=== PATIENT | male | born 1945 | race Caucasian/White ===

== ENCOUNTER → 2018-06-23 12:15 | Outpatient (CLI) | payer MEDICARE, OTHER, SELFPAY ==
--- NOTE | 2018-06-23 | DI.US.S_ITS ---
PROCEDURE: US RENAL COMPLETE INDICATIONS: CHRONIC KIDNEY DISEASE TECHNIQUE: Real-time scanning was performed of the kidneys and bladder, with image documentation. COMPARISON: [facility], CT, CHEST/ABD/PEL WITH CONTRAST, 09/16/2014, 19:58. FINDINGS: Kidneys: Kidneys are normal in size. Right kidney measures 9.2 cm long; left kidney measures 11.5 cm long. Right renal cortical thickness is 0.8 cm; left renal cortical thickness is 1.2 cm. There is increased echogenicity of the right renal cortex. The echogenicity of the left renal cortex appears to be within normal limits. No hydronephrosis or shadowing nephrolithiasis. No suspicious solid mass lesions. A simple appearing inferior left renal cyst is identified measuring up to 3.5 cm in diameter. An additional subtle 1.0 cm inferior left renal cyst also is present. Bladder: Pre-void bladder volume is 133 mL. Post-void residual is 24 mL. Pre-void images demonstrate no intraluminal masses or stones. No ureteral jets were not visualized. Miscellaneous: No free pelvic fluid. IMPRESSION: 1. Atrophic right kidney with findings suggesting chronic medical renal disease. No hydronephrosis. 2. The left kidney probably is within normal limits for the patient's age. Dictated by: José Manuel Bone M.D. on 06/23/2018 at 12:53 Approved by: José Manuel Bone M.D. on 06/23/2018 at 12:59
== END ==
PROVIDERS: Family Provider Family Medicine; PCP Family Medicine; Visit Provider Internal Medicine
DX: N18.9 Chronic kidney disease, unspecified (principal); N28.1 Cyst of kidney, acquired
CPT/HCPCS: 76770

== ENCOUNTER → 2020-07-23 13:12 | Outpatient (CLI) | payer MEDICARE, BC, SELFPAY ==
--- NOTE | 2020-07-23 | DI.RAD.S_ITS ---
PROCEDURE: XR CHEST 2V INDICATIONS: DYSNPEA TECHNIQUE: 2 views of the chest were acquired. COMPARISON: [facility], CR, XR CHEST 1VW (PORTABLE), 11/29/2016, 13:12. [facility], CR, CHEST 1 VIEW, 11/28/2016, 21:53. FINDINGS: Surgical changes and devices: Median sternotomy. Lungs and pleura: Small left pleural effusion is present. No pneumothorax. Diffuse, widespread bilateral interstitial opacities. No focal lung consolidation. Mediastinum: Mediastinal contours are normal. Heart size is enlarged. Bones and chest wall: No suspicious bony abnormalities. Soft tissues appear unremarkable. IMPRESSION: 1. Cardiomegaly and diffuse interstitial opacity suspicious for acute CHF and a small left pleural effusion is now evident. Dictated by: Cory Gardner [facility] Interpreted: Serge Jaimes MD on 07/23/2020 at 13:31 Approved by: Serge Jaimes M.D. on 07/23/2020 at 14:42
== END ==
PROVIDERS: PCP Family Medicine; Referring Provider Family Medicine; Visit Provider Family Medicine
DX: R06.00 Dyspnea, unspecified (principal); I51.7 Cardiomegaly; J90 Pleural effusion, not elsewhere classified
CPT/HCPCS: 71046

== ENCOUNTER → 2020-08-12 09:18 | Outpatient (CLI) | payer MEDICARE, BC, SELFPAY ==
--- NOTE | 2020-08-12 09:22 | DI.ECHO.S_ITS ---
[facility] +---------+ : : [address] [place] : : : : [id number] : : : : Phone: [phone] Echocardiogram Report + + :Name: MIKE CONTRERAS Study Date: 08/12/2020 Height: 70 in : :[facility] ReadingLocation: Weight: 230 lb : : Gender: Male BSA: 2.2 m2 : :: 1945 Age: 74 yrs BP: 166/61 mmHg: :Reason For Study: ACUTE SYSTOLIC CONGESTIVE HEART FAILURE : :Ordering Physician: SACHI, : :VINNIE Performed By: Kelly Cole : :Referring: VINNIE KARIMI : + + Interpretation Summary Severely dilated left ventricle with ejection fraction 25%. There is severe global hypokinesis of the left ventricle. Diastolic parameters suggest a restrictive filling pattern consistent with probable significantly elevated filling pressures. Mild to moderately dilated right ventricle with moderately reduced right ventricular systolic function. Severe biatrial enlargement. Mild aortic regurgitation. Mild mitral annular calcification. Moderate to severe mitral regurgitation, eccentrically directed jet. Moderate tricuspid regurgitation. The right ventricular systolic pressure is estimated to be at least 47 mmHg based on an estimated right atrial pressure of 15 mm Hg. Comparison is made with the echocardiogram of 04/26/2017, LV function and mitral regurgitation have worsen. Procedure: A two-dimensional transthoracic echocardiogram with color flow and Doppler was performed. The study quality was technically adequate. Comparison is made with the echocardiogram of 04/26/2017. The heart rate ranged between 48-68 bpm during the study. Left Ventricle: The estimated left ventricular end diastolic volume is 200 ml. The left ventricle is severely dilated. Left ventricular ejection fraction is estimated to be 25%. There is severe global hypokinesis of the left ventricle. Diastolic parameters suggest a restrictive filling pattern consistent with probable significantly elevated filling pressures. Right Ventricle: The right ventricle is mild to moderately dilated. Right ventricular systolic function is moderately reduced. Atria: There is severe biatrial enlargement. There is no Doppler evidence for an interatrial shunt. Mitral Valve: There is mild mitral annular calcification. There is moderate to severe mitral regurgitation. The mitral regurgitant jet is eccentrically directed. Aortic Valve: The aortic valve is trileaflet. The aortic valve opens well. There is no aortic valve stenosis. There is mild aortic regurgitation. Tricuspid Valve: The tricuspid valve is not well visualized, but is grossly normal. There is moderate tricuspid regurgitation. The right ventricular systolic pressure is estimated to be at least 47 mmHg based on an estimated right atrial pressure of 15 mm Hg. Pulmonic Valve: The pulmonic valve leaflets are thin and pliable; valve motion is normal. There is mild pulmonic regurgitation. Great Vessels: The aortic root is normal size. The dimensions of the ascending aorta are normal. The IVC is dilated (diameter is greater than 2.1 cm) and it collapses less than 50% with a sniff. This suggests a high right atrial pressure of 15 mm Hg. Pericardium/ Pleura There is no pericardial effusion. There is no pleural effusion. MMode/2D Measurements & Calculations LVIDd: 6.9 cm LVOT diam: 2.4 cm LVIDs: 5.8 cm Ao root diam: 3.7 cm FS: 16.3 % asc Aorta Diam: 3.2 cm EPSS: 2.0 cm Ao Arch Diam (Prox Trans): 2.9 cm IVSd: 1.2 cm LVPWd: 1.1 cm LV love. diameter/BSA (cm/m^2): 3.1 LV sys. diameter/BSA (cm/m^2): 2.6 LA A2 area: 33.3 cm2 RA long axis: 6.7 cm LA A4 area: 39.8 cm2 RA area: 31.8 cm2 LA length (vol): 7.3 cm RA vol: 128.4 ml LA vol: 155.0 ml RA : 58.0 ml/m2 LA vol index: 70.0 ml/m2 IVC diam: 3.0 cm RVD1 (basal): 4.6 cm TAPSE: 1.3 cm Doppler Measurements & Calculations Ao V2 max: 123.2 cm/sec LVOT Max Luis: 79.6 cm/sec Ao V2 mean: 78.6 cm/sec LV V1 max P.5 mmHg Ao max P.1 mmHg LV V1 VTI: 16.9 cm Ao mean P.9 mmHg ABEL(I,D): 3.0 cm2 Ao V2 VTI: 26.3 cm ABEL(V,D): 3.0 cm2 sev ratio: 0.64 ABEL indexed to BSA (cm^2/m^2): 1.3 MV E max luis: 103.7 cm/sec TR max luis: 283.1 cm/sec MV A max luis: 46.2 cm/sec TR max P.1 mmHg MV E/A: 2.2 PA V2 max: 63.3 cm/sec Med Peak E' Luis: 2.8 cm/sec PA V2 mean: 37.3 cm/sec E/E' med: 36.8 PA mean P.69 mmHg Lat Peak E' Luis: 4.7 cm/sec PA pr(Accel): 25.9 mmHg E/E' lat: 22.3 E/e' average: 29.5 MV dec time: 0.17 sec MR ERO: 0.27 cm2 MR PISA: 4.9 cm2 SV(LVOT): 78.4 ml MR flow rate: 172.6 cm3/sec MR PISA radius: 0.88 cm Electronically signed by: Sarahy Shultz on Reading Physician:08/12/2020 05:21 PM
== END ==
PROVIDERS: PCP Family Medicine; Referring Provider Family Medicine; Visit Provider Family Medicine
DX: I08.3 Combined rheumatic disorders of mitral, aortic and tricuspid valves (principal); I50.21 Acute systolic (congestive) heart failure
CPT/HCPCS: 93306

== ENCOUNTER → 2020-09-19 14:12 | Outpatient (CLI) | payer MEDICARE, BC, SELFPAY | PROVIDERS: PCP Family Medicine; Referring Provider Internal Medicine; Visit Provider Internal Medicine | DX: N18.4 Chronic kidney disease, stage 4 (severe) (principal); Z53.8 Procedure and treatment not carried out for other reasons ==

== ENCOUNTER → 2020-09-25 13:36 | Outpatient (CLI) | payer MEDICARE, BC, SELFPAY ==
--- NOTE | 2020-09-25 13:39 | DI.US.S_ITS ---
PROCEDURE: US RENAL COMPLETE INDICATIONS: STAGE 4 KIDNEY DISEASE TECHNIQUE: Real-time scanning was performed of the kidneys and bladder, with image documentation. COMPARISON: [facility], , US RENAL COMPLETE, 06/23/2018, 12:28. FINDINGS: Kidneys: Kidneys are normal in size. Right kidney measures 9.9 cm long; left kidney measures 11.8 cm long. Right renal cortical thickness is 1.3 cm; left renal cortical thickness is 1.3 cm. Renal cortical echotexture is normal. No hydronephrosis. Small bilateral nonobstructing calcifications measuring up to 5 mm on the right and 9 mm on the left. Left renal cyst measuring up to 5.4 cm. Bladder: Pre-void bladder volume is 169 mL. Post-void residual is 0 mL. Pre-void images demonstrate no intraluminal masses or stones. On pre-void images, neither ureteral jets are noted with color Doppler interrogation. (Of note, ureteral jets may not be detectable in up to 25% of cases due to insufficient differences in specific gravity between ureteral and bladder urine). Miscellaneous: No free pelvic fluid. IMPRESSION: 1. Bilateral nonobstructing calculi. 2. 5.4 cm left renal cyst. Dictated by: Cory Gardner [facility] Interpreted: Abdias Thompson MD on 09/25/2020 at 16:36 Approved by: Abdias Thompson M.D. on 09/25/2020 at 17:07
== END ==
PROVIDERS: PCP Family Medicine; Referring Provider Internal Medicine; Visit Provider Internal Medicine
DX: N18.4 Chronic kidney disease, stage 4 (severe) (principal); N20.0 Calculus of kidney; N28.1 Cyst of kidney, acquired
CPT/HCPCS: 76770

== ENCOUNTER → 2020-10-28 13:00 | Outpatient (CLI) | payer MEDICARE, BC, SELFPAY ==
[2020-10-28 16:59] LABS: COVID19 -Nasal RAPID Negative (Negative)
== END ==
PROVIDERS: PCP Family Medicine; Visit Provider Physician Assistant
DX: Z20.822 Contact with and (suspected) exposure to COVID-19 (principal)
CPT/HCPCS: 87635; C9803

== ENCOUNTER → 2020-10-30 10:14 | Outpatient (CLI) | payer MEDICARE, BC, SELFPAY ==
--- NOTE | 2020-10-30 18:28 | DI.NM.S_ITS ---
DATE OF SERVICE: 10/30/2020 PROCEDURE PERFORMED: Vasodilator stress and rest myocardial perfusion imaging with gating to assess ejection fraction and regional wall motion. ORDERING PROVIDER: Dr. Marco Mcneal. INDICATIONS: The patient is a 75-year-old male status post CABG, who presents with exertional dyspnea and evidence of CHF. CARDIAC STRESS: Per protocol, 0.4 mg of regadenoson was infused with a blunted hemodynamic response but he developed moderate dyspnea and some posterior neck discomfort ,suggesting adequate vasodilation. He denied any chest discomfort. His resting ECG shows atrial fibrillation at 50-60 BPM with low voltage QRS and some nonspecific ST-segment abnormalities in the inferolateral leads which remained unchanged with stress. He had occasional PVCs, but no other concerning arrhythmias. FINDINGS: 1. Raw data: There is fair myocardial tracer uptake with obvious severe left ventricular enlargement. The lung/heart ratio is significantly elevated at 0.64, suggestive of pulmonary congestion. TID ratio is normal 1.05. 2. Quantitated gated SPECT: Post-stress ejection fraction is estimated is estimated at 50%, although visually appears to be less than this. There is moderate global hypokinesis that appears to be worse in the inferior wall. The resting ejection fraction is estimated at 45%, although image quality is quite poor. The contraction pattern appears similar. Resting end-diastolic volume is markedly elevated at 362 mL. 3. Myocardial perfusion imaging: Post-stress perfusion images show a markedly dilated left ventricle with a mild perfusion defect in the inferior wall, extending to the distal inferoapex. This could reflect a true perfusion defect or diaphragmatic attenuation but the patient was unable to lay prone to assess for the latter. The resting images show an identical perfusion pattern with no clear improvement in the inferior wall perfusion defect. There are no clear areas of improvement. IMPRESSION: 1. Abnormal myocardial perfusion study. 2. Mild to moderate fixed inferior perfusion defect that likely reflects previous nontransmural infarction, given a subtle wall motion abnormality in this distribution, but could also reflect a diaphragmatic attenuation. There is no compelling evidence for any significant myocardial ischemia. 3. Markedly dilated left ventricle with moderate left ventricular systolic dysfunction, predominantly in a global fashion but appears to be worse in the inferior wall. Resting end-diastolic volume is severely elevated at 362 mL. 4. No angina or ECG evidence of ischemia with pharmacologic vasodilator stress. Underlying rhythm was atrial fibrillation with a slow ventricular response and low voltage QRS. There were occasional premature ventricular contractions, at times, in a bigeminal pattern, but no other concerning arrhythmias. Scott Moss - BETHANY/courtney/haily doc#: [id number]/job#: [id number] dd: 10/30/2020 16:59:00 dt: 10/30/2020 18:04:00 DICTATING MD/COPIES TO: Kd Tracy MD; Marco Mcneal MD COPIES MNE: GUDELIA;
== END ==
PROVIDERS: PCP Family Medicine; Referring Provider Internal Medicine Cardiovascular Disease; Visit Provider Internal Medicine Cardiovascular Disease
DX: R94.39 Abnormal result of other cardiovascular function study (principal); I25.810 Atherosclerosis of coronary artery bypass graft(s) without angina pectoris; R06.09 Other forms of dyspnea
CPT/HCPCS: 78452; 93016; 93017; 93018; A9502; J2785

== ENCOUNTER 2020-11-16 09:55 | Emergency (ER) | payer MEDICARE, BC, SELFPAY ==
[2020-11-16 10:02] VITALS: BP 170/70; PULSE 60; RESP 16; TEMP 37; O2SAT 97; BMI 32.4
--- NOTE | 2020-11-16 10:05 | ED_ITS ---
HPI - Altered Mental Status General Chief Complaint: Diabetic Problem Stated Complaint: low BS Time Seen by Provider: 11/16/20 09:58 Source: patient and EMS Mode of arrival: EMS Limitations: no limitations History of Present Illness HPI narrative: This is a 75-year-old male who has had low blood sugar yesterday as well as this morning. Today his glucose was 39, EMS gave him D10 which improved to 91. Patient states that he was confused today he lives with his daughter who called for EMS. He denies any other symptoms currently and states he feels much better after he received glucose from EMS. He denies any headache, no vision changes. No chest pain or shortness of breath, no nausea or vomiting. No diarrhea constipation he notes that he does not urinate very frequently but this is not new change for him. He denies any new swelling. Patient did start on Wellbutrin who recently. He also had a blood pressure medication started. He had his metformin stopped and changed to glipizide but from his description this was not in the last several days but possibly the next several weeks. Patient states that he was having some issues with his teeth and had only been eating cream of mushroom soup and nothing in addition. He had a dental appointment yesterday with repair and is feeling much better and no longer having dental pain. He states he had decreased his oral intake significantly. Patient states yesterday his glucose was 44, this also improved and he was not transported at that time. Patient does not take any insulin or other anti diabetic medications. He does have a history of coronary artery bypass and is on aspirin daily with no other anticoagulant. Related Data Home Medications Medication Instructions Recorded Confirmed aspirin 81 mg PO DAILY 02/01/20 07/08/20 atorvastatin 40 mg PO DAILY 02/01/20 07/08/20 cholecalciferol (vitamin D3) 125 mcg PO QMWF 02/01/20 07/08/20 [Vitamin D3] ferrous sulfate 325 mg PO DAILY 02/01/20 07/08/20 finasteride 5 mg PO DAILY 02/01/20 07/08/20 furosemide 40 mg PO DAILY 02/01/20 07/08/20 glimepiride 2 mg PO BID 02/01/20 07/08/20 hydralazine 50 mg PO TID 02/01/20 07/08/20 isosorbide mononitrate 60 mg PO QAM 02/01/20 07/08/20 losartan 25 mg PO DAILY 02/01/20 07/08/20 multivitamin 1 cap PO DAILY 02/01/20 07/08/20 tamsulosin 0.4 mg PO DAILY 02/01/20 07/08/20 trazodone 50 mg PO BEDTIME 02/01/20 07/08/20 Previous Rx's Medication Instructions Recorded hydralazine 100 mg PO TID #30 tab 11/16/20 Allergies Allergy/AdvReac Type Severity Reaction Status Date / Time Iodinated Contrast Media Allergy Unknown Unverified 10/27/17 13:00 [IODINATED CONTRAST MEDIA - ORAL AND] Review of Systems Review of Systems ROS Unobtainable: All systems reviewed & are unremarkable except as noted in HPI and below Patient History Medical History Atrial fibrillation AV block, 1st degree CKD (chronic kidney disease) stage 4, GFR 15-29 ml/min Coronary artery disease involving coronary bypass graft (~2017) Diabetes Hyperlipidemia Hypertension Iron deficiency anemia PAD (peripheral artery disease) Sick sinus syndrome Surgical History History of appendectomy S/P CABG x 3 Family History (Updated 02/01/20 @ 14:41 by Ying Green MD) Mother Ovarian cancer Social History Smoking Status: Current every day smoker (21 cigs a day) alcohol intake: never substance use type: does not use Smoking Status: Current every day smoker (21 cigs a day) Exam Narrative Exam Narrative: GEN: well nourished, well appearing male, alert and oriented x 3, patient appears to be in mild distress. HEENT: Atraumatic, pupils are equal round reactive to light, extraocular movements are intact, nares are clear, TMs are clear with no fluid, there is no conjunctival pallor. Throat is clear without any exudates, erythema, tonsillar enlargement or uvular deviation, no facial droop. Clear speech. HEART: Regular rate and rhythm without murmur, clicks, rubs. LUNGS:Lungs clear to auscultation, no wheezes, rales, crackles, chest moves symmetrically ABD:bowel sounds normal, soft, non-tender, no guarding, rebound, rigidity, no masses noted, no hepatosplenomegaly :No CVA tenderness MSCL: Non-tender, no muscle atrophy, muscles strength 5/5 upper and lower extremities, full range of motion, normal gait NEURO:CN 2-12 intact, sensation normal SKIN: No rash, erythema or other changes noted. Initial Vital Signs Initial Vital Signs: Vital Signs Temperature 98.6 F 11/16/20 10:02 Pulse Rate 60 11/16/20 10:02 Respiratory Rate 16 11/16/20 10:02 Blood Pressure 170/70 H 11/16/20 10:02 Pulse Oximetry 97 11/16/20 10:02 Scores GCS Watts coma scale eye opening: Spontaneous [place] coma scale verbal response: Orientated [place] coma scale motor response: Obey commands Watts coma scale total score: 15 Course Orders Ordered: Discontinued Medications Sodium Chloride (Normal Saline 0.9%) 1,000 mls @ 150 mls/hr IV CONT EUGENE Last Admin: 11/16/20 12:01 Dose: Not Given Documented by: BASHIR Reevaluation(s) Time: 12:11 Consultations Consultation #1: Dr. Mobley from nephrology at [facility]. Recommends that we increase patient's Lasix to 120 mg q.a.m. and 80 mg q.h.s.. She notes that he was 96.5 kg on his last office visit as we have him as 102 kg today. She also recommends decreasing his glipizide to 2 mg daily and that 2 mg b.i.d. would be too high a dose for the patient. She also recommend holding his losartan if he is hypertensive she recommends increasing his hydralazine from 50 mg t.i.d. 200 mg t.i.d.. Patient is also to call the office on Wednesday morning for close follow- up as they have been discussing that he may be requiring dialysis in the future which patient was aware of. Time: 12:11 Vital Signs Vital signs: Vital Signs - 8 hr 11/16/20 12:30 11/16/20 12:31 Pulse Rate 64 Blood Pressure 182/73 H Pulse Oximetry 96 MDM - Altered Mental Status Lab Data Attestation: I reviewed the patient's lab results. Result diagrams: 11/16/20 10:05 11/16/20 10:05 Labs: Lab Results 11/16/20 11/16/20 11/16/20 Range/Units 10:05 10:05 10:05 WBC 4.7 (4.5-11.0) X10^3/uL RBC 2.66 L (4.5-5.9) X10^6/uL Hgb 9.1 L (13.5-17.5) g/dL Hct 25.9 L (41-53) % MCV 97.5 (80-100) fL MCH 34.3 H (26-34) PG MCHC 35.2 (30-36) % RDW 14.7 (11.6-14.8) % Plt Count 123 L (150-400) X10^3/uL Neut % (Auto) 78.9 H (50-75) % Lymph % (Auto) 7.8 L (25-40) % [place] % (Auto) 10.6 (3-14) % Eos % (Auto) 2.2 (2-4) % Baso % (Auto) 0.5 (0-2) % Neut # (Auto) 3700 (4228-8598) /uL Lymph # (Auto) 400 L (1129-0601) /uL [place] # (Auto) 500 (0-900) /uL Eos # (Auto) 100 (0-450) /uL Baso # (Auto) 0 (0-100) /uL PT 15.5 H (10.1-12.7) SECONDS INR 1.4 H (0.9-1.3) APTT 39 H (26.4-36.2) SECONDS Sodium 132 L (137-145) mmol/L Potassium 4.0 (3.4-5.1) mmol/L Chloride 102 (98-107) mmol/L Carbon Dioxide 19 L (22-32) mmol/L BUN 74 H (9-20) mg/dL Creatinine 3.48 H (0.66-1.25) mg/dL Estimated GFR 17.2 L (>60) mL/min BUN/Creatinine Ratio 21.3 (6-22) Glucose 117 H (80-110) mg/dL Lactate (0.7-2.1) mmol/L Calcium 9.5 (8.4-10.2) mg/dL Total Bilirubin 0.8 (0.2-1.3) mg/dL AST 19 (17-59) IU/L ALT 15 (<50) IU/L Alkaline Phosphatase 135 H (38-126) U/L Total Creatine Kinase 93 (55-170) U/L CK-MB (CK-2) TNP CK-MB (CK-2) Rel Index TNP Troponin I 0.032 (0.01-0.034) ng/mL Total Protein 6.6 (6.3-8.2) g/dL Albumin 3.8 (3.5-5.0) g/dL Globulin 2.8 (1.7-4.1) g/dL Albumin/Globulin Ratio 1.4 (1.0-2.8) TSH (0.47-4.68) uIU/mL Ethyl Alcohol < 10 ( - 10) mg/dL 11/16/20 11/16/20 Range/Units 10:05 10:05 WBC (4.5-11.0) X10^3/uL RBC (4.5-5.9) X10^6/uL Hgb (13.5-17.5) g/dL Hct (41-53) % MCV (80-100) fL MCH (26-34) PG MCHC (30-36) % RDW (11.6-14.8) % Plt Count (150-400) X10^3/uL Neut % (Auto) (50-75) % Lymph % (Auto) (25-40) % [place] % (Auto) (3-14) % Eos % (Auto) (2-4) % Baso % (Auto) (0-2) % Neut # (Auto) (4221-6221) /uL Lymph # (Auto) (8026-1617) /uL [place] # (Auto) (0-900) /uL Eos # (Auto) (0-450) /uL Baso # (Auto) (0-100) /uL PT (10.1-12.7) SECONDS INR (0.9-1.3) APTT (26.4-36.2) SECONDS Sodium (137-145) mmol/L Potassium (3.4-5.1) mmol/L Chloride (98-107) mmol/L Carbon Dioxide (22-32) mmol/L BUN (9-20) mg/dL Creatinine (0.66-1.25) mg/dL Estimated GFR (>60) mL/min BUN/Creatinine Ratio (6-22) Glucose (80-110) mg/dL Lactate 1.3 (0.7-2.1) mmol/L Calcium (8.4-10.2) mg/dL Total Bilirubin (0.2-1.3) mg/dL AST (17-59) IU/L ALT (<50) IU/L Alkaline Phosphatase (38-126) U/L Total Creatine Kinase (55-170) U/L CK-MB (CK-2) CK-MB (CK-2) Rel Index Troponin I (0.01-0.034) ng/mL Total Protein (6.3-8.2) g/dL Albumin (3.5-5.0) g/dL Globulin (1.7-4.1) g/dL Albumin/Globulin Ratio (1.0-2.8) TSH 0.350 L (0.47-4.68) uIU/mL Ethyl Alcohol ( - 10) mg/dL Point of Care Testing Glucose POC 162 Imaging Data Chest x-ray: Radiologist's Impression: [address] [id number] ReportSigned Patient: Scott Moss [facility]#: [id number]: 4Acct:[id number]/Sex: 75 / MDate of Service: 11/16/20Loc: EDAccession Number: [id number] Procedure: XR chest 1V Ordering Provider: Valarie Ramirez D.O. PROCEDURE: XR CHEST 1V INDICATIONS: hypoglycemia, recurrent TECHNIQUE: One view of the chest was acquired. COMPARISON: [facility], , XR CHEST 2V, 07/23/2020, 13:21. FINDINGS: Surgical changes and devices: Status post CABG with median sternotomy wires. Multiple wires are fractured, unchanged. Lungs and pleura: There is diffuse interstitial prominence with patchy opacities at the left lung base and likely trace left-sided pleural effusion. There is prominence of the pulmonary vasculature. Mediastinum: Mediastinal contours appear normal. Heart size is enlarged, unchanged. Bones and chest wall: No suspicious bony lesions. Overlying soft tissues appear unremarkable. IMPRESSION: Findings most consistent with CHF including cardiomegaly, trace left-sided pleural effusion along with interstitial and alveolar edema. Underlying infection not completely excluded in the correct clinical setting. Dictated by: Jaxson Barahona D.O. on 11/16/2020 at 9:29 Approved by: Jaxson Barahona D.O. on 11/16/2020 at 9:32 renal US 09/25/20.: Radiologist's Impression: [address] [id number] ReportSigned Patient: Scott Moss [facility]#: [id number]: 4Acct:[id number]/Sex: 75 / MDate of Service: 09/25/20Loc: USAccession Number: [id number] Procedure: US renal complete Ordering Provider: Stella Downing MD PROCEDURE: US RENAL COMPLETE INDICATIONS: STAGE 4 KIDNEY DISEASE TECHNIQUE: Real-time scanning was performed of the kidneys and bladder, with image documentation. COMPARISON: [facility], US RENAL COMPLETE, 06/23/2018, 12:28. FINDINGS: Kidneys: Kidneys are normal in size. Right kidney measures 9.9 cm long; left kidney measures 11.8 cm long. Right renal cortical thickness is 1.3 cm; left renal cortical thickness is 1.3 cm. Renal cortical echotexture is normal. No hydronephrosis. Small bilateral nonobstructing calcifications measuring up to 5 mm on the right and 9 mm on the left. Left renal cyst measuring up to 5.4 cm. Bladder: Pre-void bladder volume is 169 mL. Post-void residual is 0 mL. Pre- void images demonstrate no intraluminal masses or stones. On pre-void images, neither ureteral jets are noted with color Doppler interrogation. (Of note, ureteral jets may not be detectable in up to 25% of cases due to insufficient differences in specific gravity between ureteral and bladder urine). Miscellaneous: No free pelvic fluid. IMPRESSION: 1. Bilateral nonobstructing calculi. 2. 5.4 cm left renal cyst. Dictated by: Cory Gardner RRA Interpreted: Abdias Thompson MD on 09/25/2020 at 16:36 Approved by: Abdias Thompson M.D. on 09/25/2020 at 17:07 ECG Data Attestation: I personally reviewed and interpreted this ECG as follows: Interpretation: AFib rate of 62 QRS 98 QTC [address] No acute ST-elevation depression noted. MDM Narrative Medical decision making narrative: This is a 75-year-old male comes in with recurrent hypoglycemia yesterday and today. After further evaluation patient is on glipizide she has been on for a long period of time but he has worsening renal function and he is likely having some worsening hypoglycemia secondary to this as well as having decreased oral intake from a recent dental issue which was treated yesterday and patient states he cannot eat more regularly. His renal function was reviewed with his outside industrial sales representative who notes that he is also up on his weight and patient clinically appears fluid overloaded as well on his imaging. She recommends increasing his Lasix from 160 mg daily to 120 mg in the morning and 80 mg in the evening. Having the patient stop his losartan, as well as increase his hydralazine from 50-100 mg t.i.d. for his chronic hypertension. She also recommends that we decrease his glipizide to 1 tablet daily as he is likely not clearing it sufficiently. There has been discussion with the patient in the that he may require dialysis ultimately and she would like for the patient to see them this week. Patient did have a renal ultrasound in September which showed a simple cyst but no other significant renal changes. Patient is otherwise feeling much improved here in the department and has not had any recurrent hypoglycemia. All recommendations were discussed with the patient and his family and additional prescription was sent of the hydralazine in case he runs out. Discharge Plan Departure Patient Disposition: Home Clinical Impression: Hypoglycemia, Acute on chronic kidney failure, Low TSH level Activity Restrictions/Additional Instructions: I spoke with your outside industrial sales representative today. She would like for you to call Wednesday to set up follow-up in the next week as your renal function is worsening. She recommends; Increase your Lasix to 120 mg (3 tablets) in the morning and 80 mg (2 tablets) in the afternoon or 5 tablets total each day. Stop your losartan. Increase your hydralazine from 50mg 3 times daily(1 tablet) to 100 mg (2 tablets) 3 times daily. Decrease your glimepizide to 1 tablet daily Prescription to [facility] in [place] for extra hydralazine. Also note your TSH is low today and you should discuss with your outside industrial sales representative an d/or primary care physician about having your thyroid checked and possibly started on medication. Please return for fevers, new or worsening shortness of breath, increasing weight in your daily weight checks, increasing swelling of your extremities, lightheadedness or passing out, new chest pain or shortness of breath, worsening decrease or if you stopped making urine or recurrent hypoglycemic/low blood sugar episodes. Prescriptions: New hydralazine 50 mg tablet 100 mg PO TID Qty: 30 RF: 0 No Action furosemide 40 mg Tablet 40 mg PO DAILY RF: 0 atorvastatin 40 mg Tablet 40 mg PO DAILY RF: 0 trazodone 50 mg Tablet 50 mg PO BEDTIME RF: 0 hydralazine 25 mg Tablet 50 mg PO TID RF: 0 glimepiride 2 mg Tablet 2 mg PO BID RF: 0 isosorbide mononitrate 60 mg Tablet Extended Release 24 Hr 60 mg PO QAM RF: 0 tamsulosin 0.4 mg Capsule 0.4 mg PO DAILY RF: 0 ferrous sulfate 325 mg (65 mg iron) Tablet 325 mg PO DAILY RF: 0 losartan 25 mg Tablet 25 mg PO DAILY RF: 0 aspirin 81 mg Tablet,Chewable 81 mg PO DAILY RF: 0 multivitamin Capsule 1 cap PO DAILY RF: 0 finasteride 5 mg Tablet 5 mg PO DAILY RF: 0 cholecalciferol (vitamin D3) [Vitamin D3] 125 mcg (5,000 unit) Tablet 125 mcg PO QMWF RF: 0 Referrals: Kd Zamora MD [Primary Care Provider] -
[2020-11-16 10:15] VITALS: PULSE 60; O2SAT 96
[2020-11-16 10:20] LABS: Add Manual Diff / Slide Review NO; Basophils Absolute Auto 0 /uL (0-100); Basophils Percent Auto 0.5 % (0-2); Eosinophils Absolute Auto 100 /uL (0-450); Eosinophils Percent Auto 2.2 % (2-4); Hematocrit 25.9 % (41-53); Hemoglobin 9.1 g/dL (13.5-17.5); INR 1.4 (0.9-1.3); Lymphocytes Absolute Auto 400 /uL (1100-4500); Lymphocytes Percent Auto 7.8 % (25-40); Mean Corpuscular HGB Conc 35.2 % (30-36); Mean Corpuscular Hemoglobin 34.3 PG (26-34); Mean Corpuscular Volume 97.5 fL (80-100); Monocytes Absolute Auto 500 /uL (0-900); Monocytes Percent Auto 10.6 % (3-14); Neutrophils Absolute Auto 3700 /uL (1500-7000); Neutrophils Percent Auto 78.9 % (50-75); Platelet Count 123 X10^3/uL (150-400); Prothrombin Time 15.5 SECONDS (10.1-12.7); Red Blood Cell Count 2.66 X10^6/uL (4.5-5.9); Red Cell Distribution Width 14.7 % (11.6-14.8); White Blood Cell Count 4.7 X10^3/uL (4.5-11.0)
[2020-11-16 10:22] LABS: PTT Partial Thromboplastin Tim 39 SECONDS (26.4-36.2)
[2020-11-16 10:24] LABS: Lactate (Lactic Acid) 1.3 mmol/L (0.7-2.1)
[2020-11-16 10:26] LABS: Alanine Aminotransferase 15 IU/L (<50); Albumin 3.8 g/dL (3.5-5.0); Albumin Globulin Ratio 1.4 (1.0-2.8); Alkaline Phosphatase 135 U/L (38-126); Aspartate Aminotransferase 19 IU/L (17-59); BUN Creatinine Ratio 21.3 (6-22); Bilirubin Total 0.8 mg/dL (0.2-1.3); Blood Urea Nitrogen 74 mg/dL (9-20); Calcium 9.5 mg/dL (8.4-10.2); Carbon Dioxide 19 mmol/L (22-32); Chloride 102 mmol/L (98-107); Creatine Kinase 93 U/L (55-170); Estimated Glomerular Filt Rate 17.2 mL/min (>60); Ethanol (ETOH) < 10 mg/dL; Globulin 2.8 g/dL (1.7-4.1); Glucose 117 mg/dL (80-110); HEMOLYSIS < 15 (0-50); Sodium 132 mmol/L (137-145); Total Protein 6.6 g/dL (6.3-8.2)
--- NOTE | 2020-11-16 10:29 | PC.NURSE ---
Pt sitting up in bed AAOx3, eating eggs and toast. daughter at bedside. NAD
[2020-11-16 10:37] LABS: Troponin I 0.032 ng/mL (0.01-0.034)
[2020-11-16 12:30] VITALS: PULSE 64; O2SAT 96
[2020-11-16 12:31] VITALS: BP 182/73
== END 2020-11-16 12:47 | disposition home or self-care (01) ==
PROVIDERS: Emergency Provider Emergency Medicine; PCP Family Medicine
DX: E11.649 Type 2 diabetes mellitus with hypoglycemia without coma (principal); N17.9 Acute kidney failure, unspecified; R79.89 Other specified abnormal findings of blood chemistry
CPT/HCPCS: 36415; 71045; 80053; 80320; 82550; 82962; 83605; 84443; 84484; 85025; 85610; 85730; 93005; 99284

== ENCOUNTER → 2021-06-02 09:32 | Outpatient (CLI) | payer MEDICARE, BC, SELFPAY ==
[2021-06-02 13:01] LABS: COVID19 -Nasal RAPID Negative (Negative)
== END ==
PROVIDERS: PCP Family Medicine; Visit Provider Physician Assistant
DX: Z01.812 Encounter for preprocedural laboratory examination (principal); Z20.822 Contact with and (suspected) exposure to COVID-19
CPT/HCPCS: 87635

== ENCOUNTER 2021-06-04 09:57 | Day surgery (SDC) | payer MEDICARE, BC, SELFPAY ==
--- NOTE | 2021-06-04 | PATH_ITS ---
[facility] Accession Number: [id number] . 01 Material submitted: . PART A: gastrointestinal site - GASTRIC BIOPSY PART B: stomach - STOMACH BIOPSY . 01 Clinical history: . B: R/O SAHNI'S . 02 Diagnosis: A. Stomach, Biopsies: Helicobacter pylori gastritis. Scattered forms morphologically consistent with Helicobacter pylori seen on H/E stain. Negative for intestinal metaplasia. Negative for dysplasia or malignancy. . B. Designated Stomach Biopsy: Proximal gastric-type mucosa with moderate chronic inflammation and intestinal metaplasia; please see comment. Intestinal metaplasia present in three of three biopsies fragments. Negative for dysplasia or malignancy. [facility] 06/06/2021 1112 Local . 02 Comment: Specimen B is received as stomach biopsy, rule out Sahni's. Sections are of proximal gastric-type mucosa with intestinal metaplasia. These features would be consistent with Sahni's esophagus in the appropriate endoscopic setting if the biopsies were taken from the gastroesophageal junction. The differential diagnosis also includes gastric intestinal metaplasia in the setting of Helicobacter pylori gastritis. Clinical endoscopic correlation is required. . 02 Electronically signed: . Buddy Knight MD, PhD, Pathologist NPI- [id number] . 01 Gross description: . Part A: GASTRIC BIOPSY: Received in formalin are 2 fragment(s) of ness, soft tissue measuring 0.2 x 0.2 x 0.2 cm to 0.3 x 0.3 x 0.2 cm submitted entirely in 1 cassette(s) Part B: STOMACH BIOPSY: Received in formalin are 3 fragment(s) of ness, soft tissue measuring 0.1 x 0.1 x 0.1 cm to 0.2 x 0.2 x 0.2 cm submitted entirely in 1 cassette(s) /ROSY 06/05/2021 0153 Local . 02 Pathologist provided ICD-10: K29.70, B96.81, K20.80 . 02 CPT . 744315, 978181 Performed at: 01 [facility] [address] [id number] MD Tanmay Hudson MD Phone: [phone] Performed at: 02 [facility] [address] [place], [place] [id number] MD Blanca Alexander MD Phone: [phone]
[2021-06-04 10:20] VITALS: BP 147/82; PULSE 52; RESP 24; TEMP 36.4; O2SAT 96; BMI 27.5
--- NOTE | 2021-06-04 10:32 | PM.HP.1 ---
History of Present Illness History of Present Illness Date of Onset of Symptoms: 06/04/21 Chief complaint: EGD Narrative: New diagnosis of cirrhosis rule out esophageal varices. In addition in mildly anemic. Patient History Medical History Atrial fibrillation AV block, 1st degree CKD (chronic kidney disease) stage 4, GFR 15-29 ml/min Coronary artery disease involving coronary bypass graft (~2017) Diabetes Hyperlipidemia Hypertension Iron deficiency anemia PAD (peripheral artery disease) Sick sinus syndrome Surgical History History of appendectomy S/P CABG x 3 Family & Social History Family History (Updated 02/01/20 @ 14:41 by Ying Green MD) Mother Ovarian cancer Tobacco & Substance use: Smoking Status Current every day smoker alcohol intake never Substance Use Type does not use Meds Home Medications and Allergies Home Medications Medication Instructions Recorded Confirmed Type aspirin 81 mg chewable tablet 81 mg PO DAILY 02/01/20 07/08/20 History atorvastatin 40 mg tablet 40 mg PO DAILY 02/01/20 07/08/20 History cholecalciferol (vitamin D3) 125 125 mcg PO QMWF 02/01/20 07/08/20 History mcg (5,000 unit) tablet (Vitamin D3) ferrous sulfate 325 mg (65 mg 325 mg PO DAILY 02/01/20 07/08/20 History iron) tablet finasteride 5 mg tablet 5 mg PO DAILY 02/01/20 07/08/20 History hydralazine 25 mg tablet 50 mg PO TID 02/01/20 07/08/20 History isosorbide mononitrate 60 mg 60 mg PO QAM 02/01/20 07/08/20 History tablet,extended release 24 hr losartan 25 mg tablet 25 mg PO DAILY 02/01/20 07/08/20 History tamsulosin 0.4 mg capsule 0.4 mg PO DAILY 02/01/20 07/08/20 History trazodone 50 mg tablet 50 mg PO BEDTIME 02/01/20 07/08/20 History hydralazine 50 mg tablet 100 mg PO TID #30 tab 11/16/20 Rx Allergies Allergy/AdvReac Type Severity Reaction Status Date / Time Iodinated Contrast Media Allergy Unknown Verified 06/04/21 10:15 [IODINATED CONTRAST MEDIA - ORAL AND] Exam Vital Signs (past 8 hours): Oropharynx free of lesion Chest clear to auscultation percussion Cardiac exam reveals no S3 or murmur Assessment & Plan Assessment & Plan narrative: New diagnosis of cirrhosis rule out esophageal varices and band if moderate to large in size. Also mild anemia. Risks, benefits and alternatives to EGD have been explained. Further recommendations will follow-up results study. Time Spent With Patient Critical Care time: I spent a total of [] minutes of critical care time on this patient's care today; this time is exclusive of procedural time.
--- NOTE | 2021-06-04 10:34 | PM.OP.EGD ---
Operative Date/Time/Diagnoses Date of procedure: 06/04/21 Pre-op diagnosis: See indication and findings Procedure & Clinicians Study performed: Had EGD with possible banding Indications: New diagnosis of cirrhosis rule out esophageal varices Surgeon: Anais Yang Procedure Notes Procedure in detail: After informed consent was obtained the patient was placed in left lateral decubitus position. The video upper scope placed into the oropharynx and with the patient's help swelled into the esophagus. The esophagus stomach and duodenum were carefully examined. On withdrawal, retroflexed view the GE junction was performed. The scope was removed. The patient tolerated procedure well. Blood loss none Complications none Sedation mac Findings 1. Grossly normal esophagus without any evidence of esophageal varices 2. One wide tongue of mucosa in the distal esophagus between 39 and 41 cm (C0M2). Biopsies taken to rule out Liu's esophagus 3. Scattered erythema in the stomach without gross findings of gastropathy of portal hypertension biopsied rule out Helicobacter 4. 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 Patient will need follow-up with Dr. Rasheed for further instruction/workup
[2021-06-04] MEDS: LACTATED RINGERS 1,000 ML 42 ML IV (10:52)
[2021-06-04 10:58] VITALS: BP 145/63; PULSE 46; RESP 20; TEMP 36.2; O2SAT 97
[2021-06-04 11:03] VITALS: BP 144/47; PULSE 42; RESP 18; O2SAT 97
[2021-06-04 11:08] VITALS: BP 153/58; PULSE 50; RESP 12; O2SAT 98
[2021-06-04 11:19] VITALS: BP 155/59; PULSE 45; RESP 17; TEMP 37.1; O2SAT 98
== END 2021-06-04 11:51 | disposition home or self-care (01) ==
PROVIDERS: PCP Family Medicine; Referring Provider Internal Medicine Gastroenterology; Visit Provider Internal Medicine Gastroenterology
PROC: 0DJ08ZZ Inspection of Upper Intestinal Tract, Via Natural or Artificial Opening Endoscopic (ICD-10-PCS; CPT 43235; principal; 2021-06-04 11:00)
DX: K29.50 Unspecified chronic gastritis without bleeding (principal); B96.81 Helicobacter pylori [H. pylori] as the cause of diseases classified elsewhere; K74.60 Unspecified cirrhosis of liver; I48.91 Unspecified atrial fibrillation; N18.4 Chronic kidney disease, stage 4 (severe); I25.10 Atherosclerotic heart disease of native coronary artery without angina pectoris; E11.9 Type 2 diabetes mellitus without complications; E78.5 Hyperlipidemia, unspecified; I10 Essential (primary) hypertension; D50.9 Iron deficiency anemia, unspecified; I73.9 Peripheral vascular disease, unspecified; F17.210 Nicotine dependence, cigarettes, uncomplicated; K63.89 Other specified diseases of intestine
CPT/HCPCS: 43239; J2704

== ENCOUNTER → 2023-03-19 12:37 | Outpatient (CLI) | payer MEDICARE, OTHER, SELFPAY ==
--- NOTE | 2023-03-19 12:39 | DI.ECHO.S_ITS ---
[facility]---------+ [facility] +---------+ : : [address] [place] : : : : [id number] : : : : Phone: [phone]+ Echocardiogram Report + + :Name: MIKE CONTRERAS Study Date: 03/19/2023 Height: 70 in : :[facility] ReadingLocation: Weight: 190 lb : : Gender: Male BSA: 2.0 m2 : :: 1945 Age: 77 yrs BP: 102/47 mmHg: :Reason For Study: Nonrheumatic Mitral Valve Insufficiency : :Ordering Physician: KARISSA, : :ANU Performed By: Elvira De La Cruz : :Referring: ANU HANCOCK : + + Interpretation Summary The left ventricle is severely dilated. There has been no significant change since the previous study. The ejection fraction is estimated to be 20-25%. There has been no significant change since the previous exam. The right ventricle is moderate to severely dilated. There has been no significant change since the previous study. Right ventricular systolic function is moderate to severely reduced. There is a pacemaker lead in the right ventricle. Both atria are severely dilated. Both atria have remained unchanged in size since the prior echo exam. There is moderate to severe mitral regurgitation. Compared to the prior echo study, there has been no change in the severity of mitral regurgitation. There is mild tricuspid regurgitation. The right ventricular systolic pressure is estimated to be at least 48 mmHg based on an estimated right atrial pressure of 15 mm Hg. Compared to the prior echo exam, there has been no change in the severity of pulmonary hypertension. Procedure: A two-dimensional transthoracic echocardiogram with color flow and Doppler was performed. The study quality was technically difficult. The patient had an echocardiogram, but there is no comparison study available. A contrast injection of Definity was performed to improve assessment of LV function. The patient has a paced rhythm. Left Ventricle: The left ventricle is severely dilated. There has been no significant change since the previous study. There is no thrombus. The ejection fraction is estimated to be 20-25%. There has been no significant change since the previous exam. There is severe global hypokinesis of the left ventricle. Diastolic function could not be accurately assessed due to paced rhythm. Right Ventricle: The right ventricle is moderate to severely dilated. There is a pacemaker lead in the right ventricle. There has been no significant change since the previous study. Right ventricular systolic function is moderate to severely reduced. There has been no significant change since the previous study. Atria: The left atrium is severely dilated. Both atria are severely dilated. Both atria have remained unchanged in size since the prior echo exam. The right atrium is severely dilated. There is no Doppler evidence for an interatrial shunt. Mitral Valve: The mitral valve leaflets are mildly calcified. There is mild mitral annular calcification. There is no mitral valve stenosis. There is moderate to severe mitral regurgitation. Compared to the prior echo study, there has been no change in the severity of mitral regurgitation. The mitral regurgitant jet is eccentrically directed. Aortic Valve: The aortic valve is trileaflet. There is mild aortic valve sclerosis. There is no aortic valve stenosis. There is trace aortic regurgitation. Tricuspid Valve: The tricuspid valve is normal. There is no tricuspid stenosis. There is mild tricuspid regurgitation. The right ventricular systolic pressure is estimated to be at least 48 mmHg based on an estimated right atrial pressure of 15 mm Hg. Compared to the prior echo exam, there has been no change in the severity of pulmonary hypertension. Compared to the prior echo exam, there has been a decrease in TR severity. Pulmonic Valve: The pulmonic valve is not well visualized. There is no pulmonic valvular stenosis. There is trace pulmonic regurgitation. Great Vessels: The aortic root is borderline dilated. The ascending aorta is normal in size. The pulmonary artery is normal size. The IVC is dilated (diameter is greater than 2.1 cm) and it collapses less than 50% with a sniff. This suggests a high right atrial pressure of 15 mm Hg. Pericardium/ Pleura There is no pericardial effusion. There is no pleural effusion. MMode/2D Measurements & Calculations LVIDd: 6.8 cm LVOT diam: 2.4 cm LVIDs: 6.1 cm Ao root diam: 3.8 cm FS: 10.3 % asc Aorta Diam: 3.6 cm EPSS: 1.8 cm IVSd: 1.2 cm LVPWd: 1.2 cm LV love. diameter/BSA (cm/m^2): 3.3 LV sys. diameter/BSA (cm/m^2): 3.0 LA A2 area: 28.0 cm2 RA long axis: 6.3 cm LA A4 area: 32.3 cm2 RA area: 27.4 cm2 LA length (vol): 6.5 cm RA vol: 100.8 ml LA vol: 119.0 ml RA : 49.4 ml/m2 LA vol index: 58.3 ml/m2 RVD1 (basal): 5.4 cm LVLs ap4: 8.5 cm LVLd ap2: 8.8 cm TAPSE_phl: 1.1 cm LVLs ap2: 8.3 cm Doppler Measurements & Calculations Ao V2 max: 144.0 cm/sec LVOT Max Luis: 94.3 cm/sec Ao V2 mean: 96.4 cm/sec LV V1 max P.6 mmHg Ao max P.0 mmHg LV V1 VTI: 19.6 cm Ao mean P.0 mmHg ABEL(I,D): 2.6 cm2 Ao V2 VTI: 34.7 cm ABEL(V,D): 3.0 cm2 sev ratio: 0.56 ABEL indexed to BSA (cm^2/m^2): 1.3 MVA(VTI): 2.3 cm2 TR max luis: 287.0 cm/sec TR max P.9 mmHg PA V2 max: 79.1 cm/sec PA V2 mean: 49.5 cm/sec PA mean P.0 mmHg PA pr(Accel): 50.6 mmHg MV V2 mean: 68.4 cm/sec SV(LVOT): 88.7 ml MV mean P.4 mmHg MV V2 VTI: 38.0 cm AV VR_phl: 0.65 ABEL(VTI)/BSA_phl: 1.3 Reading Physician:06:30 PM
== END ==
PROVIDERS: PCP Family Medicine; Referring Provider Internal Medicine Cardiovascular Disease; Visit Provider Internal Medicine Cardiovascular Disease
DX: I08.3 Combined rheumatic disorders of mitral, aortic and tricuspid valves (principal)
CPT/HCPCS: 93306; Q9957

== ENCOUNTER → 2023-11-08 12:13 | Outpatient (ROUT) | payer MEDICARE, OTHER, SELFPAY ==
[2023-11-08 13:31] LABS: Adenovirus Not Detected (Not Detect); B. parapertussis Not Detected (Not Detecte); Bordetella pertussis Not Detected (Not Detect); Chlamydophila pneumoniae Not Detected (Not Detect); Coronavirus 229E Not Detected (Not Detect); Coronavirus HKU1 Not Detected (Not Detect); Coronavirus NL 63 Not Detected (Not Detect); Coronavirus OC43 Not Detected (Not Detect); Human Metapneumovirus Detected (Not Detect); Human Rhinovirus/Enterovirus Not Detected (Not Detect); Influenza A Not Detected (Not Detect); Influenza B Not Detected (Not Detect); Mycoplasma pneumoniae Not Detected (Not Detect); Parainfluenza Virus 1 Not Detected (Not Detect); Parainfluenza Virus 2 Not Detected (Not Detect); Parainfluenza Virus 3 Not Detected (Not Detect); Parainfluenza Virus 4 Not Detected (Not Detect); Respiratory Syncytial Virus Not Detected (Not Detect); SARS- CoV-2 Not Detected (Not Detecte)
== END ==
PROVIDERS: PCP Family Medicine; Visit Provider Family Medicine
DX: R05.1 Acute cough (principal)
CPT/HCPCS: 87633

== ENCOUNTER → 2023-11-08 12:15 | Outpatient (CLI) | payer MEDICARE, OTHER, SELFPAY ==
--- NOTE | 2023-11-08 | DI.RAD.S_ITS ---
PROCEDURE: XR CHEST 2V INDICATIONS: ACUTE COUGH TECHNIQUE: 2 views of the chest were acquired. COMPARISON: [facility], CR, XR CHEST 1V, 11/16/2020, 10:10. [facility], CR, XR CHEST 2 VIEWS, 12/22/2021, 13:43. FINDINGS: Surgical changes and devices: Right-sided dialysis catheter, sternal wires and pacemaker are unchanged. Lungs and pleura: Overall appearance of increased pulmonary vascularity. Mediastinum: Mediastinal contours are normal. Heart size is markedly enlarged. Bones and chest wall: No suspicious bony abnormalities. Soft tissues appear unremarkable. IMPRESSION: Marked cardiomegaly with increased vascularity suggestive of edema. Dictated by: Ann Kidd M.D. on 11/08/2023 at 17:10 Approved by: Ann Kidd M.D. on 11/08/2023 at 17:10
== END ==
PROVIDERS: PCP Family Medicine; Referring Provider Family Medicine; Visit Provider Family Medicine
DX: R05.1 Acute cough (principal); I51.7 Cardiomegaly; Z95.828 Presence of other vascular implants and grafts; Z95.0 Presence of cardiac pacemaker
CPT/HCPCS: 71046; 87633

== ENCOUNTER → 2024-03-27 16:27 | Outpatient (ROUT) | payer MEDICARE, OTHER, SELFPAY ==
[2024-03-27 16:48] LABS: COVID19 -Nasal RAPID Negative (Negative)
== END ==
PROVIDERS: PCP Family Medicine; Visit Provider Family Medicine
DX: R09.3 Abnormal sputum (principal); R06.00 Dyspnea, unspecified
CPT/HCPCS: 87635

== ENCOUNTER → 2024-03-27 16:42 | Outpatient (CLI) | payer MEDICARE, OTHER, SELFPAY ==
--- NOTE | 2024-03-27 16:44 | DI.RAD.S_ITS ---
PROCEDURE: XR CHEST 2V INDICATIONS: COUGH TECHNIQUE: 2 views of the chest were acquired. COMPARISON: [facility], CR, XR CHEST 2V, 11/08/2023, 12:33. FINDINGS: Surgical changes and devices: Pacemaker and leads in stable satisfactory position. a new left IJ double lumen catheter is in place tip overlies the SVC right atrial junction in satisfactory position. Sternotomy changes noted. Lungs and pleura: Minimal interstitial edema is seen in both lungs. Small effusions noted. Mediastinum: Heart is mildly enlarged with mild congestion of the pulmonary vasculature. Remaining mediastinum is normal Bones and chest wall: No suspicious bony abnormalities. Soft tissues appear unremarkable. IMPRESSION: << mild CHF Dictated by: Tae Santiago M.D. on 03/29/2024 at 14:40 Approved by: Tae Santiago M.D. on 03/29/2024 at 14:42
== END ==
PROVIDERS: PCP Family Medicine; Referring Provider Family Medicine; Visit Provider Family Medicine
DX: I50.9 Heart failure, unspecified (principal); R05.1 Acute cough; R09.3 Abnormal sputum; R06.00 Dyspnea, unspecified
CPT/HCPCS: 71046; 87635

== ENCOUNTER → 2024-04-03 | Outpatient (CLI) | payer MEDICARE, OTHER, SELFPAY ==
--- NOTE | 2024-04-03 | DI.RAD.S_ITS ---
PROCEDURE: XR CHEST 2V INDICATIONS: cough TECHNIQUE: 2 views of the chest were acquired. COMPARISON: [facility], CR, XR CHEST 2V, 03/27/2024, 16:57. FINDINGS: Heart, mediastinum and pulmonary vascular: Moderate cardiomegaly is unchanged. AICD device and left Port-A-Cath in stable satisfactory position. Mediastinum is unremarkable. Pulmonary vessels show mild distention. Lungs: Moderate interstitial edema is seen bilaterally. Pleural spaces: Normal-no effusions or pneumothorax. IMPRESSION: Mild CHF-no significant change Dictated by: Tae Santiago M.D. on 04/04/2024 at 8:17 Approved by: Tae Santiago M.D. on 04/04/2024 at 8:19
== END ==
PROVIDERS: PCP Family Medicine; Referring Provider Family Medicine; Visit Provider Family Medicine
DX: I50.9 Heart failure, unspecified (principal); R05.1 Acute cough; I51.7 Cardiomegaly; Z95.810 Presence of automatic (implantable) cardiac defibrillator
CPT/HCPCS: 71046

== ENCOUNTER → 2025-05-09 11:31 | Outpatient (CLI) | payer MEDICARE, OTHER, SELFPAY ==
--- NOTE | 2025-05-09 11:33 | DI.RAD.S_ITS ---
PROCEDURE: XR FOOT LT MIN 3V INDICATIONS: PAIN TECHNIQUE: 3 views of the foot were acquired. COMPARISON: None. FINDINGS: Bones: No fractures or dislocations. No suspicious bony lesions. Polyarticular osteoarthritic degenerative changes noted. Small calcaneal bone spurs. Soft tissues: No tibiotalar joint effusion. Achilles tendon appears normal. IMPRESSION: No acute bony abnormality. Dictated by: Brittney Holland MD, PhD on 05/09/2025 at 12:19 Approved by: Brittney Holland MD, PhD on 05/09/2025 at 12:20
== END ==
LOC: RAD 11:32
PROVIDERS: PCP Family Medicine; Referring Provider Family Medicine; Visit Provider Family Medicine
DX: L03.032 Cellulitis of left toe (principal); M77.32 Calcaneal spur, left foot
CPT/HCPCS: 73630

== ENCOUNTER → 2025-05-16 06:47 | Outpatient (CLI) | payer MEDICARE, OTHER, SELFPAY ==
--- NOTE | 2025-05-16 06:49 | DI.US.S_ITS ---
PROCEDURE: US ART LOW EXT LT W/CONNIE INDICATIONS: Cellulitis of great toe of left foot TECHNIQUE: Color and pulse Doppler interrogation was performed of the left lower extremity arterial systems, with image documentation. COMPARISON: Report of study dated 08/13/2020 FINDINGS: Left lower extremity: Common femoral artery: 95 cm/sec, with monophasic flow. Deep femoral artery: 62 cm/sec, with monophasic flow. Proximal superficial femoral artery: 47 cm/sec, with monophasic flow. Mid superficial femoral artery: Occluded. Distal superficial femoral artery: 19 cm/sec, with monophasic flow. Popliteal artery: 16 cm/sec, with monophasic flow. Posterior tibial artery: 10 cm/sec, with monophasic flow. Anterior tibial artery/dorsalis pedis: Not seen Greer-scale imaging description: Severe plaque throughout IMPRESSION: 1. 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 2. 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 3. Very decreased flow seen in the outflow vessels, probably also with occlusion of the anterior tibial and dorsalis pedis. 4. Left ankle broad pressure could not be detected, CONNIE was unobtainable. Dictated by: Rosalio Yeager M.D. on 05/16/2025 at 20:44 Approved by: Rosalio Yeager M.D. on 05/16/2025 at 20:50
== END ==
LOC: US 06:48
PROVIDERS: Family Provider Family Medicine; PCP Family Medicine; Referring Provider Family Medicine; Visit Provider Family Medicine
DX: L03.032 Cellulitis of left toe (principal); I70.202 Unspecified atherosclerosis of native arteries of extremities, left leg
CPT/HCPCS: 93979

== ENCOUNTER → 2025-05-18 08:53 | Outpatient (CLI) | payer MEDICARE, OTHER, SELFPAY | LOC: WC 09:05 | PROVIDERS: Family Provider Family Medicine; PCP Family Medicine; Referring Provider Family Medicine; Visit Provider Physician Assistant | DX: I70.245 Atherosclerosis of native arteries of left leg with ulceration of other part of foot (principal); L97.522 Non-pressure chronic ulcer of other part of left foot with fat layer exposed; L53.8 Other specified erythematous conditions; R60.0 Localized edema; Z87.891 Personal history of nicotine dependence | CPT/HCPCS: 11042; 99213 ==

== ENCOUNTER → 2025-05-22 15:15 | Outpatient (CLI) | payer MEDICARE, OTHER, SELFPAY | LOC: WC 15:20 | PROVIDERS: Family Provider Family Medicine; PCP Family Medicine; Referring Provider Family Medicine; Visit Provider Surgery | DX: I70.245 Atherosclerosis of native arteries of left leg with ulceration of other part of foot (principal); R60.0 Localized edema | CPT/HCPCS: 99213 ==

== ENCOUNTER → 2025-05-25 08:54 | Outpatient (CLI) | payer MEDICARE, OTHER, SELFPAY | LOC: WC 08:57 | PROVIDERS: Family Provider Family Medicine; PCP Family Medicine; Referring Provider Family Medicine; Visit Provider Physician Assistant | DX: I70.244 Atherosclerosis of native arteries of left leg with ulceration of heel and midfoot (principal); I70.245 Atherosclerosis of native arteries of left leg with ulceration of other part of foot; L97.522 Non-pressure chronic ulcer of other part of left foot with fat layer exposed; L97.422 Non-pressure chronic ulcer of left heel and midfoot with fat layer exposed; L53.8 Other specified erythematous conditions; R60.0 Localized edema | CPT/HCPCS: 11042; 87070; 87075; 87077; 87186; 87205; 99214 ==

== ENCOUNTER → 2025-06-01 10:47 | Outpatient (CLI) | payer MEDICARE, OTHER, SELFPAY | LOC: WC 10:49 | PROVIDERS: Family Provider Family Medicine; PCP Family Medicine; Referring Provider Family Medicine; Visit Provider Physician Assistant | DX: I70.245 Atherosclerosis of native arteries of left leg with ulceration of other part of foot (principal); L97.522 Non-pressure chronic ulcer of other part of left foot with fat layer exposed; L97.422 Non-pressure chronic ulcer of left heel and midfoot with fat layer exposed; L53.8 Other specified erythematous conditions; R60.0 Localized edema | CPT/HCPCS: 11042; 99214 ==

== ENCOUNTER → 2025-06-08 10:18 | Outpatient (CLI) | payer MEDICARE, OTHER, SELFPAY | LOC: WC 10:19 | PROVIDERS: Family Provider Family Medicine; PCP Family Medicine; Referring Provider Family Medicine; Visit Provider Physician Assistant | DX: I70.245 Atherosclerosis of native arteries of left leg with ulceration of other part of foot (principal); I70.244 Atherosclerosis of native arteries of left leg with ulceration of heel and midfoot; L97.522 Non-pressure chronic ulcer of other part of left foot with fat layer exposed; L97.422 Non-pressure chronic ulcer of left heel and midfoot with fat layer exposed; L53.8 Other specified erythematous conditions; Z79.01 Long term (current) use of anticoagulants; R60.0 Localized edema | CPT/HCPCS: 97597; 99214 ==